=== PATIENT | female | born 1970 | race Caucasian/White ===

== ENCOUNTER → 2017-12-31 | Outpatient (CLI) | payer SELFPAY ==
[2017-12-31 11:44] LABS: BASO # 0.1 (0.02-0.10); EOS # 0.1 (0.04-0.40); EOS % 1.9 % (1.0-5.0); HEMATOCRIT 41.2 % (37.0-47.0); HEMOGLOBIN 13.6 g/dL (12.5-16.0); LYMPH# 1.9 (1.50-4.00); MEAN CELL VOLUME 93 fl (78-100); MEAN CORPUSCULAR HEMOGLOBIN 31 pg (27-31); MEAN CORPUSCULAR HGB CONC 33 g/dL (33-37); MEAN PLATELET VOLUME 9.6 fl (7.4-10.4); MONO # 0.5 (0.20-0.80); PLATELET COUNT 319 K/mm3 (130-400); RED BLOOD COUNT 4.45 M/mm3 (4.10-5.30); RED CELL DISTRIBUTION WIDTH 13.2 % (11.5-14.5); WHITE BLOOD COUNT 6.7 K/mm3 (4.8-10.8)
== END ==
LOC: RAD 10:30
PROVIDERS: Nurse Practitioner Family
DX: M41.84 Other forms of scoliosis, thoracic region (principal); M47.894 Other spondylosis, thoracic region; R53.83 Other fatigue; Z85.42 Personal history of malignant neoplasm of other parts of uterus

== ENCOUNTER 2018-10-01 14:30 | Outpatient (RCR) | payer MEDICAID | END 2018-11-17 | LOC: PT | DX: S24.101A Unspecified injury at T1 level of thoracic spinal cord, initial encounter (principal); S24.102A Unspecified injury at T2-T6 level of thoracic spinal cord, initial encounter ==